=== PATIENT | female | born 1955 | race Caucasian/White ===

== ENCOUNTER 2025-04-06 18:34 | Emergency (ER) | payer MEDICARE ==
[~2025-04-06] VITALS: Ht 147.3 cm; Wt 33.0 kg
[2025-04-06 19:06] VITALS: TEMP 98.5
[2025-04-06 19:25] LABS: GLUCOMETER DEV NAME(LOC) ERT.7; GLUCOSE,POINT OF CARE 335 MG/DL (70-110)
[2025-04-06] MEDS: ACETAMINOPHEN 500 MG TABLET PO ONE (19:27)
[2025-04-06] MEDS: SODIUM CHLORIDE 0.9% 1,000 ML IV ONE (19:28)
[2025-04-06 20:50] LABS: GLUCOMETER DEV NAME(LOC) ER.7; GLUCOSE,POINT OF CARE 288 MG/DL (70-110)
[2025-04-06 21:09] VITALS: BP 112/63; PULSE 84; RESP 16; O2SAT 99
== END 2025-04-06 22:19 | disposition home or self-care (01) ==
LOC: EMS 18:36
DX: S63.502A Unspecified sprain of left wrist, initial encounter (principal); S80.02XA Contusion of left knee, initial encounter; E11.65 Type 2 diabetes mellitus with hyperglycemia; W01.0XXA Fall on same level from slipping, tripping and stumbling without subsequent striking against object, initial encounter; Y93.89 Activity, other specified; Y92.89 Other specified places as the place of occurrence of the external cause; Y99.8 Other external cause status
CPT/HCPCS: 99284; 96360; 96361; 82962; 73080; 73110; 73562; 29125; J7030; 29530